=== PATIENT | male | born 1970 | race Caucasian/White ===

== ENCOUNTER 2020-10-20 20:50 | Emergency (ER) | payer BC ==
--- NOTE | 2020-10-20 21:14 | ER Document Report ---
ED Medical Screen (RME) - General Chief Complaint: Jaw Pain Stated Complaint: JAW PAIN Time Seen by Provider: 10/20/20 21:07 Primary Care Provider: RACHEL GILBERT [Primary Care Provider] - Follow up as needed Mode of Arrival: Ambulatory Information source: Patient - HPI Patient complains to provider of: Left jaw pain, right chest pain Notes: 10/20/20 21:12 Patient with complaints of some left jaw pain that started earlier today. Pain is fairly constant but occasionally gets worse. States that he cannot really reproduce it with biting or movement. He denies any dental pain. He also reports some right-sided chest pain. He was concerned that this could be signs of a heart attack and his made him come to the ER. Exam: No distress, nontoxic appearing. Lungs clear and equal throughout. No jaw swelling. An initial examination was made on the patient as part of the triage process, and it was determined a more comprehensive evaluation was necessary. Initial orders were placed and patient was transferred to another provider in the ED who assumed care and finished evaluation and plan. - Related Data Allergies/Adverse Reactions: No Known Allergies Allergy (Verified 10/20/20 21:06) Past Medical History Pulmonary Medical History: Reports: Hx Asthma - Immunizations Hx Diphtheria, Pertussis, Tetanus Vaccination: Yes Physical Exam - Vital signs Vitals: Temp Pulse Resp BP Pulse Ox 97.9 F 53 L 17 125/71 99 10/20/20 20:59 10/20/20 20:59 10/20/20 20:59 10/20/20 20:59 10/20/20 20:59 Course - Vital Signs Vital signs: Temp Pulse Resp BP Pulse Ox 97.9 F 53 L 17 125/71 99 10/20/20 20:59 10/20/20 20:59 10/20/20 20:59 10/20/20 20:59 10/20/20 20:59 Doctor's Discharge - Discharge Referrals: RACHEL GILBERT [Primary Care Provider] - Follow up as needed
--- NOTE | 2020-10-20 21:50 | EKG REPORT ---
SEVERITY:- OTHERWISE NORMAL ECG - SINUS BRADYCARDIA BORDERLINE LEFT AXIS DEVIATION : Confirmed by: Marlon Riley MD 20-Oct-2020 21:50:38
--- NOTE | 2020-10-20 22:21 | RADIOLOGY REPORT (SQ) ---
EXAM DESCRIPTION: XR CHEST 2 VIEWS COMPLETED DATE/TME: 10/20/2020 22:02 CLINICAL HISTORY: 50 years, Male, CP COMPARISON: None. NUMBER OF VIEWS: 2 TECHNIQUE: 2 views of the chest LIMITATIONS: None. FINDINGS: The heart size is normal. Minimal scarring left lung base. Lungs are otherwise clear. No pneumothorax IMPRESSION: No acute cardiopulmonary process copyright 2010 .[employer]- All Rights Reserved
[2020-10-20 22:29] LABS: ABSOLUTE EOSINOPHILS # (AUTO) 0.1 10^3/uL (0.0-0.6); ABSOLUTE LYMPHOCYTES (AUTO) 2.9 10^3/uL (0.5-4.7); ABSOLUTE MONOCYTES (AUTO) 0.6 10^3/uL (0.1-1.4); ABSOLUTE NEUT (AUTO) 3.1 10^3/uL (1.7-8.2); BASOPHILS % (AUTO) 0.4 % (0-2); EOSINOPHILS % (AUTO) 0.9 % (0-6); HEMATOCRIT 44.3 % (37.9-51.0); HEMOGLOBIN 15.1 g/dL (13.5-17.0); LYMPHOCYTES % (AUTO) 43.4 % (13-45); MEAN CORPUSCULAR HEMOGLOBIN 30.3 pg (27.0-33.4); MEAN CORPUSCULAR HGB CONC 34.1 g/dL (32.0-36.0); MEAN CORPUSCULAR VOLUME 89 fl (80-97); MONOCYTES % (AUTO) 9.5 % (3-13); PLATELET COUNT 200 10^3/uL (150-450); RED BLOOD COUNT 4.98 10^6/uL (4.35-5.55); RED CELL DISTRIBUTION WIDTH 13.6 % (11.5-14.0); SEGMENTED NEUTROPHILS % (AUTO) 45.8 % (42-78); TOTAL CELLS COUNTED % (AUTO) 100 %; WHITE BLOOD COUNT 6.8 10^3/uL (4.0-10.5)
[2020-10-20 22:48] LABS: ALBUMIN 3.8 g/dL (3.5-5.0); ALKALINE PHOSPHATASE 83 U/L (38-126); ASPARTATE AMINO TRANSFERASE 33 U/L (17-59); BILIRUBIN,DIRECT 0.1 mg/dL (0.0-0.4); BILIRUBIN,TOTAL 0.3 mg/dL (0.2-1.3); BLOOD UREA NITROGEN 28 mg/dL (7-20); CALCIUM 9.1 mg/dL (8.4-10.2); CARBON DIOXIDE 34 mmol/L (22-30); GLUCOSE 84 mg/dL (75-110); POTASSIUM 4.4 mmol/L (3.6-5.0); TOTAL PROTEIN 6.5 g/dL (6.3-8.2)
[2020-10-20 22:53] LABS: CHLORIDE 103 mmol/L (98-107)
[2020-10-20 22:54] LABS: ANION GAP 2 (5-19)
--- NOTE | 2020-10-21 01:19 | ER Document Report ---
ED General - General Chief Complaint: Jaw Pain Stated Complaint: JAW PAIN Time Seen by Provider: 10/20/20 21:07 Primary Care Provider: RACHEL GILBERT [NO LOCAL MD] - Follow up as needed Mode of Arrival: Ambulatory - [facility] Notes: 50-year-old male presents with left-sided jaw pain. Patient reports he has had left-sided jaw pain "at the hinge" for the entire day. Is been constant but intermittently worsens. Patient states that he cannot duplicate the pain. He states it feels like a toothache but is not coming from a tooth. He reports that the pain resolved about 2 hours ago. States he does grind his teeth. He was discussing his symptoms with his and she told him that these could be signs of a heart attack. He denies chest pain, shortness of breath, nausea or diaphoresis. 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 Denies a previous history of heart disease. Denies a family history of heart disease. - Related Data Allergies/Adverse Reactions: No Known Allergies Allergy (Verified 10/20/20 21:06) Past Medical History - General Information source: Patient - Social History Smoking Status: Never Smoker Frequency of alcohol use: Occasional Drug Abuse: None Family History: denies: CAD Pulmonary Medical History: Reports: Hx Asthma - Immunizations Hx Diphtheria, Pertussis, Tetanus Vaccination: Yes Review of Systems - Review of Systems Constitutional: No symptoms reported EENT: See HPI Cardiovascular: denies: Chest pain Respiratory: denies: Short of breath Gastrointestinal: denies: Abdominal pain, Diarrhea, Nausea, Vomiting Genitourinary: No symptoms reported Male Genitourinary: No symptoms reported Musculoskeletal: Back pain Skin: No symptoms reported Hematologic/Lymphatic: No symptoms reported Neurological/Psychological: No symptoms reported Physical Exam - Vital signs Vitals: Temp Pulse Resp BP Pulse Ox 97.9 F 53 L 17 125/71 99 10/20/20 20:59 10/20/20 20:59 10/20/20 20:59 10/20/20 20:59 10/20/20 20:59 - General General appearance: Appears well, Alert In distress: None - HEENT Head: Normocephalic, Atraumatic Extraocular movements intact: Yes Pupils: PERRL Notes: Tenderness over the left TMJ joint. Full range of motion of jaw, no trismus. N o lymphadenopathy. - Respiratory Breath sounds: Normal - Cardiovascular Rhythm: Bradycardia Heart sounds: Normal auscultation - Abdominal Tenderness: Nontender - Extremities General upper extremity: Normal ROM General lower extremity: Normal ROM - Neurological Neuro grossly intact: Yes Cognition: Normal Orientation: AAOx4 - Psychological Associated symptoms: Normal affect - Skin Skin Temperature: Warm Course - Re-evaluation Re-evalutation: 50-year-old male presents with a left jaw pain constant throughout the day. On exam he does have tenderness to the left TMJ which did reproduce the pain that he was experiencing. Will treat with Motrin. I would have low suspicion for cardiac etiology at this time. His story is not concerning, he has no risk fa ctors, his EKG is nonischemic and his initial troponin is negative. Given his age we will send a repeat troponin. Labs done through triage is seen for an elevated creatinine of 1.3, this was discussed with patient, he states he will follow-up with his primary care doctor about this. HEART Score: History 0 ECG 0 Age 1 Risk Factors 0 Troponin 0 Total: 1 If HEART score is = 3 AND both tronponin measurments are normal, the 30 day risk of a major adverse cardiac event (all-cause mortality, myocardia infarction or need for coronary revscularization) is < 1% (Sensitivity 100%, NPV 100%). 10/21/20 02:18 Troponin negative x2 Chest pain in a patient without evidence of cardiac or other serious etiology on workup today. I discussed with patient that, based on their age, risk factors and emergency department testing today, the likelihood that their symptoms are related to a heart attack is very low (estimated risk of heart attack or over the next 30 days of less than 1%). The patient demonstrates decision making capacity and has verbalized an understanding of these risks to me. Based on this, the patient has chosen to follow-up as an outpatient. Usual chest pain return precautions reviewed. The patient states understanding and agreement with this plan. - Vital Signs Vital signs: Temp Pulse Resp BP Pulse Ox 97.9 F 53 L 14 135/76 H 100 10/20/20 20:59 10/20/20 20:59 10/21/20 02:01 10/21/20 02:00 10/21/20 02:01 - Laboratory Results Result Diagrams: 10/20/20 22:16 10/20/20 22:16 Laboratory Results Interpreted: 10/20/20 22:16 Carbon Dioxide 34 H Anion Gap 2 L BUN 28 H Creatinine 1.30 H Est GFR (MDRD) Non-Af 58 L Critical Laboratory Results Reviewed: No Critical Results - Radiology Results Critical Radiology Results Reviewed: No Critical Results - EKG Interpretation by Me Additional EKG results interpreted by me: EKG is interpreted by me. Sinus bradycardia, rate 49. Narrow QRS, QTC within normal limits. No ST segment elevation or depression. Discharge - Discharge Clinical Impression: Jaw pain, Elevated serum creatinine Disposition: HOME, SELF-CARE Additional Instructions: As discussed today, pain likely coming from the TMJ joint of your left jaw. Work-up was reassuring today for cardiac etiology. However please follow-up with your primary care doctor and discuss scheduling an outpatient stress test. Additionally your creatinine was elevated to 1.3, please drink plenty of fluids and have your primary care doctor recheck this level. Return to the emergency department for any concerning worsening symptoms. Referrals: LOCALMD,NO [NO LOCAL MD] - Follow up as needed
[2020-10-21] MEDS ORDERED: IBUPROFEN 800 MG TABLET PO ONE (01:32)
[2020-10-21 02:18] VITALS: BP 135/76
== END 2020-10-21 02:32 | disposition home or self-care (01) ==
LOC: ER 20:50
DX: R68.84 Jaw pain (principal); R79.89 Other specified abnormal findings of blood chemistry; R07.9 Chest pain, unspecified; M54.6 Pain in thoracic spine
CPT/HCPCS: 36415; 71046; 80053; 84484; 85025; 93005; 93010; 99285